=== PATIENT | male | born 1995 | race Caucasian/White ===

== ENCOUNTER 2019-09-27 14:59 | Outpatient (CLI) | payer BC, MEDICAID, SELFPAY ==
--- NOTE | ~2019-09-27 | XR_ITS ---
XR abdomen/kub 1V 09/27/2019 10:16 Indication: Gross hematuria Procedure: KUB Comparison: Comparison to multiple prior studies sequentially, with oldest reviewed study dated 01/25. Findings: Bowel gas pattern is nonobstructive. Moderate colonic fecal loading. Fecal material and bow el content Limited evaluation for renal/ureteral stones. There is scoliosis with spinal rods obscurin g the mid abdomen. Impression: 1: No acute abdominal abnormality. No definite nephrolithiasis. Reviewed, dictated and finalized at location A. Impression: 1: No acute abdominal abnormality. No definite nephrolithiasis.
== END 2019-09-27 15:00 | disposition home or self-care (01) ==
PROVIDERS: Visit Provider Nurse Practitioner Adult Health
DX: R31.0 Gross hematuria (principal)
CPT/HCPCS: 74018

== ENCOUNTER 2020-01-10 09:24 | Outpatient (CLI) | payer BC, MEDICAID, SELFPAY ==
--- NOTE | ~2020-01-10 | XR_ITS ---
XR abdomen/kub 1V DATE: 01/10/2020 09:39 INDICATION: Abdominal acute pain. History of kidney stones. TECHNIQUE: 2 AP views COMPARISON: 09/27/2019 KUB 01/10/2020 CT abdomen pelvis FINDINGS: There is a prominent of fecal material in the rectosigmoid area. No bowel obstruction is ev ident. Prostate calcifications are noted. No urinary bladder calcifications are noted. Upper and lower pole left renal calcified calculi. Pinpoint right renal calculus noted on the current CT abdomen pelvis examination is not definitively demonstrated radiographically. Diffuse osteopenia. There is prominent scoliosis, with bilateral pedicle screws and rods. One left adair mbar screw and the right iliac screw are no longer connected to the respective rods, unchanged since 09/27/2019. IMPRESSION: Bilateral nonobstructive nephrolithiasis Reviewed, dictated and finalized at Location A. Reviewed, dictated and finalized at location A.
--- NOTE | ~2020-01-10 | CT_ITS ---
EXAMINATION: CT abdomen pelvis wo con DATE: 01/10/2020 10:45 INDICATION: Acute abdominal pain TECHNIQUE: Computed tomography (CT) of the abdomen and pelvis was performed without intravenous contr ast. Automated exposure control and iterative reconstruction technique were employed. Exam dose: 534 .47 mGy-cm total exam DLP. COMPARISON: 05/19/2019 CT abdomen pelvis FINDINGS: The examination is quite limited due to extensive artifact from pedicle screws and rods in the thoracic and lumbar spine and sacrum and iliac bones. There is discoid scarring of the middle lobe. There is a pinpoint nonobstructing right renal calculus and approximately 4 mm and up to 7.8 mm nonob structing left renal calculi. No hydronephrosis of either kidney is evident. No obvious hepatic, sple jennifer, pancreatic or renal mass lesion is noted on this extremely limited noncontrast examination, but the streak artifact could easily obscure a significant abnormal mass in any of these structures. The gallbladder is present. No bile duct or pancreatic duct dilatation is evident. No hydronephrosis is evident. No obvious abdominal aortic aneurysm. No obvious adenopathy. There is a defect in the layer of hyperdensity in the urinary bladder suggesting blood or possibly sm all stones. There is moderate bladder wall thickening which may be secondary to any combination of ne uropathic cause, prostate enlargement and/or cystitis. No pericystic fat stranding is evident. There is fecal excrement between the buttocks, consistent with apparent fecal incontinence. No bowel obstruction or intraperitoneal free air is detected. IMPRESSION: Very limited examination due to extensive streak artifact from hardware of the thoracic and lumbar spine. Hyperdense dependent material in the urinary bladder consistent with hemorrhage or stones Bilateral nonobstructive nephrolithiasis Reviewed, dictated and finalized at Location A. Reviewed, dictated and finalized at location A. IMPRESSION: Very limited examination due to extensive streak artifact from ce dware of the thoracic and lumbar spine. Hyperdense dependent material in the urinary bladder consistent with hemorrhage or stones Bilateral nonobstructive nephrolithiasis
== END 2020-01-10 09:25 | disposition home or self-care (01) ==
PROVIDERS: Visit Provider Urology
DX: R10.9 Unspecified abdominal pain (principal); N20.0 Calculus of kidney
CPT/HCPCS: 74018; 74176

== ENCOUNTER 2020-01-28 10:34 | Outpatient (CLI) | payer BC, MEDICAID, SELFPAY ==
[2020-01-28 11:22] LABS: Prothrombin Time 12.7 Seconds (11.1-14.7)
[2020-01-28 11:23] LABS: Partial Thromboplastin Time 29.7 SECONDS (22.3-36.8)
[2020-01-28 12:00] LABS: Valproic Acid 89.1 ug/mL (50-120)
== END 2020-01-28 10:35 | disposition home or self-care (01) ==
PROVIDERS: Anesthesiology; Visit Provider Urology
DX: N20.1 Calculus of ureter (principal)
CPT/HCPCS: 36415; 80164; 85610; 85730; 87086; 87088

== ENCOUNTER 2020-02-04 01:29 | Outpatient (CLI) | payer BC, MEDICAID, SELFPAY ==
[2020-02-04 19:20] LABS: SARS-CoV-2 RNA PCR Negative
== END 2020-02-04 01:30 | disposition home or self-care (01) ==
LOC: ANHCOVIDDT 01:29
PROVIDERS: Visit Provider Urology
DX: Z01.812 Encounter for preprocedural laboratory examination (principal); Z20.828 Contact with and (suspected) exposure to other viral communicable diseases
CPT/HCPCS: 87635; C9803; U0003

== ENCOUNTER 2020-02-06 01:11 | Day surgery (SDC) | payer BC, MEDICAID, SELFPAY ==
[2020-01-26 11:42] VITALS: BMI 19.5
--- NOTE | ~2020-02-06 | XR_ITS ---
EXAMINATION: XR abdomen/kub 1V INDICATION: Left-sided ureteral stones TECHNIQUE: Supine view the abdomen is obtained COMPARISON: 01/10/2020 FINDINGS: Bowel contents project over the kidneys limiting sensitivity for renal stones. No definite urinary tract calculi are identified. There is a phlebolith of the right pelvis. Prostatic calcificat ions are noted. The bowel gas pattern is normal. There our changes of fusion from the thorax of the s acrum with separation of the right sacral screw from the spinous portion of the hardware. IMPRESSION: 1. No definite urolithiasis identified. Reviewed, dictated and finalized at location B.
[2020-02-06 06:40] VITALS: BP 153/83; PULSE 89; RESP 16; TEMP 36.9; O2SAT 98
--- NOTE | 2020-02-06 07:05 | WPDHPUPDATE1 ---
History and Physical Update Update Date/Time: 02/06/20 07:05 History and Physical has been reviewed, including an updated exam of the patient. There are NO changes in the patient's condition. Risks, benefits, and alternatives have been discussed and questions answered. Patient agrees to proceed with procedure.
--- NOTE | 2020-02-06 07:18 | P.PNAN_ITS ---
Anes - Initial Pre Proc Eval Procedure: Operation Date: 02/06/20 08:30 Proposed Procedures p Left Ureteral Extracorporeal Shock Wave Lithotripsy - Kamran Araujo MD s Flexible Cystoscopy - Kamran Araujo MD Date/Time: 02/06/20 07:18 Surgeon: Kamran Araujo MD Pre Op Diagnosis: Left Ureteral Stone Patient Data Age: 24 Gender: M Height: 5 ft Weight: 45.36 kg Allergies Allergy/AdvReac Type Severity Reaction Status Date / Time No Known Allergies Allergy Verified 02/06/20 07:19 Home Medications Medication Instructions Recorded Confirmed Type baclofen 20 mg PO TID 01/26/20 01/26/20 History sulfamethoxazole-trimethoprim 1 ml PO BID 01/26/20 01/26/20 History [Sulfatrim] valproic acid (as sodium salt) 125 mg PO DAILY 01/26/20 01/26/20 History valproic acid (as sodium salt) 250 mg PO HS 01/26/20 01/26/20 History Patient hx anesthesia problems: none Family hx anesthesia problems: none FOR[facility], [facility] Past Medical History Medical History (Updated 02/06/20 @ 07:19 by Kyaw Fuller MD) Cerebral palsy Social History Social History Smoking status: Never smoker Spiritual care concerns: No Anes - Eval Final PreProcedure Day of Procedure 02/06/20 07:18 Patient weight: normal Heart: regular rate and rhythm Lungs: clear to auscultation Neurological: other (severe mental impairment) Last oral intake: 2 hours (clears) ASA classification: III Emergent: no Anesthetic plan: proceed Anesthesia type and monitoring: general LMA and standard monitoring Informed Consent: The patient's anesthetic plan and its attendant risks and benefits were discussed with the patient and mother. Questions were solicited and answers provided to the satisfaction of the patient and mother.
[2020-02-06] MEDS: ceFAZolin 2 GM/D5W 50 ML 2 GM/50 ML BAG IVPB (08:34)
[2020-02-06] MEDS: LACTATED RINGERS 1,000 ML 30 ML IV CONT (08:50)
--- NOTE | 2020-02-06 09:16 | PM.PROC ---
Procedure Note - Detailed Date of procedure: 02/06/20 Pre-op diagnosis: Left Ureteral Stone Post-op diagnosis: same Procedure performed: 1. Flexible cystoscopy 2. Left renal ESWL Description of procedure: The patient was brought to the operative suite where he was placed in the supine position on the Dornier lithotripsy table. Cystoscopy is undertaken with a 16 F flexible cystoscope. Has no urethral strictures and no enlargement of the prostate. Bladder mucosa without hyperemia. There is no intravesical foreign body or neoplasm. The focal point of the lithotripter was placed at a 5-6mm left lower pole calculus. A total of 2500 shocks were delivered at a power setting of 4. Limited exhaustive attempt to identify the smaller upper pole left renal calculus without success. There appeared to be good fragmentation of the stone. The patient tolerated the procedure well and was taken to the recovery room in good condition. Anesthesia: GLMA Surgeon: Kamran Araujo MD Estimated blood loss (mL): 0 Drains: No Packing: No Pathology: none sent Complications: No immediate complications Condition: stable Disposition: PACU
[2020-02-06 09:24] VITALS: BP 176/103; PULSE 122; RESP 20; TEMP 36.1; O2SAT 98
--- NOTE | 2020-02-06 09:39 | SUR.PHASEI ---
[id number] pt with cerebral palsy,unable to continue vs with agitation. pt pulled pulled out iv and drsg applied. stretcher with padded siderails. [id number] mother at side for comfort. dr wilde here and talked to mother.
[2020-02-06 09:43] VITALS: PULSE 105; RESP 18; O2SAT 99
[2020-02-06 09:50] VITALS: PULSE 104; RESP 22; O2SAT 99
--- NOTE | 2020-02-06 09:51 | SUR.PHASEII ---
0951 remains in room 17,mother at side for comfort,remains agitated with monitors on. padded siderails to stretcher. respirations easy.
[2020-02-06 10:20] VITALS: RESP 20; O2SAT 99
== END 2020-02-06 10:21 | disposition home or self-care (01) ==
PROVIDERS: Visit Provider Urology
PROC: (CPT 50590; principal; 2020-02-06 08:30)
PROC: 0TJB8ZZ Inspection of Bladder, Via Natural or Artificial Opening Endoscopic (ICD-10-PCS; CPT 52000; 2020-02-06 08:30)
DX: N20.1 Calculus of ureter (principal); G80.9 Cerebral palsy, unspecified
CPT/HCPCS: 50590; 74018; A9270; J0690; J1100; J2250; J2405; J3010; J7030; J7120

== ENCOUNTER 2020-02-24 11:35 | Outpatient (CLI) | payer BC, MEDICAID, SELFPAY ==
--- NOTE | ~2020-02-24 | XR_ITS ---
XR abdomen/kub 1V DATE: 02/24/2020 11:55 INDICATION: Acute abdominal pain. Recent lithotripsy. TECHNIQUE: AP projection COMPARISON: 02/06/2020 KUB FINDINGS: There is a prominent amount of fecal material in the rectum and colon. No bowel obstruction is evident. Probable left calcified pelvic phlebolith. Spinal rods and pedicle screws extend from the thoracic spine to the sacrum; prominent dextroscoliosi s of the thoracolumbar spine. Diffuse osteopenia. Deformity of both hips. IMPRESSION: No significant change since 02/06/2020 Reviewed, dictated and finalized at Location [facility]. Reviewed, dictated and finalized at location B.
== END 2020-02-24 11:36 | disposition home or self-care (01) ==
PROVIDERS: Visit Provider Urology
DX: R10.9 Unspecified abdominal pain (principal)
CPT/HCPCS: 74018

== ENCOUNTER 2020-04-02 13:27 | Outpatient (CLI) | payer BC, MEDICAID, SELFPAY ==
--- NOTE | ~2020-04-02 | CT_ITS ---
EXAMINATION: CT abdomen pelvis wo con DATE: 04/02/2020 13:46 INDICATION: Bilateral kidney stones. TECHNIQUE: Computed tomography (CT) of the abdomen and pelvis was performed without intravenous contr ast. Automated exposure control and iterative reconstruction technique were employed. The dose-length product was 243.24 mGy-cm. COMPARISON: CT abdomen and pelvis 01/10/2020 FINDINGS: The visualized portions of the lung bases demonstrate mild atelectasis. No pleural effusion . The heart size is normal. No pericardial effusion. The liver, gallbladder, spleen, and pancreas are normal. The adrenal glands are obscured by metal artifact. There is a 1 mm stone in right kidney. Th ere is a 5 mm stone in left kidney. There is cortical thinning of left kidney. There is a small volum e of hematoma in the bladder. There is a 5 mm stone in the bladder. The stomach is distended. There a re no dilated loops of bowel. The appendix is normal. There are no pathologically enlarged lymph node s. There is no free intraperitoneal fluid. There is dextroscoliosis of thoracolumbar spine. There are changes of posterior fusion procedure from thoracic spine to the sacrum and iliac bones. There is st ar artifact from the instrumentation. IMPRESSION: 1. Stones in the kidneys and bladder. Sensitivity is decreased by artifact from the spinal instrument ation. 2. Small volume of hematoma in the bladder. Reviewed, dictated and finalized at location A. DEVELOPER IMPRESSION: 1. Stones in the kidneys and bladder. Sensitivity is decreased by artifact from the spinal instrumentation. 2. Small volume of hematoma in the bladder.
== END 2020-04-02 13:28 | disposition home or self-care (01) ==
PROVIDERS: Visit Provider Urology
DX: N20.0 Calculus of kidney (principal)
CPT/HCPCS: 74176

== ENCOUNTER 2020-04-13 10:36 | Outpatient (CLI) | payer BC, MEDICAID, SELFPAY ==
--- NOTE | ~2020-04-13 | US_ITS ---
EXAMINATION: US renal BI EXAM DATE: 04/13/2020 11:18 INDICATION: Bilateral kidney stones. TECHNIQUE: Multiple grayscale and Doppler images of the kidneys were obtained (by a technologist who performed the scan) and subsequently reviewed. There is no prior study for comparison. FINDINGS: Right kidney: There is normal contour and echogenicity. It measures 8.0 x 3.6 x 3.9 centimeters. Th ere are no focal renal lesions identified. There is no hydronephrosis. Left kidney: There is normal contour and echogenicity. It measures 9.7 x 3.8 x 4.7 centimeters. The re are no focal renal lesions identified. There is no hydronephrosis. Bladder not well visualized. IMPRESSION: 1. Mild bilateral renal atrophy. Reviewed, dictated and finalized at location A. [facility]
== END 2020-04-13 10:37 | disposition home or self-care (01) ==
LOC: ANHIMG 10:41
PROVIDERS: Visit Provider Urology
DX: N20.0 Calculus of kidney (principal); N26.1 Atrophy of kidney (terminal)
CPT/HCPCS: 76775

== ENCOUNTER 2020-08-27 10:10 | Outpatient (CLI) | payer BC, MEDICAID, SELFPAY ==
--- NOTE | ~2020-08-27 | XR_ITS ---
EXAMINATION: XR abdomen/kub 1V EXAM DATE: 08/27/2020 10:31 INDICATION: Bilateral kidney stones. TECHNIQUE: Frontal projection(s) of the abdomen for interpretation. Comparison is made to prior exami nation from 02/24/2020. FINDINGS: There is large amount of bowel and stomach gas overlying the renal contours. Possible left nephrolithiasis identified, indicated. Moderate to severe lower lumbar dextroscoliosis and Zelaya rods no obstruction. Hip dysplasia. IMPRESSION: 1. Possible left nephrolithiasis identified. Reviewed, dictated and finalized at location A.
== END 2020-08-27 10:11 | disposition home or self-care (01) ==
LOC: ANHIMG 10:14
PROVIDERS: Visit Provider Urology
DX: N20.0 Calculus of kidney (principal)
CPT/HCPCS: 74018

== ENCOUNTER 2020-09-13 10:13 | Outpatient (CLI) | payer BC, MEDICAID, SELFPAY ==
--- NOTE | ~2020-09-13 | US_ITS ---
EXAMINATION: US renal BI DATE: 09/13/2020 10:48 INDICATION: Abdominal pain TECHNIQUE: Multiple ultrasound grayscale images of the kidneys were obtained. COMPARISON: 04/13/2020 FINDINGS: The right kidney measures 10.3 x 4.0 x 4.8 cm. The left kidney is suboptimally visualized measuring a pproximately 8.5 x 4.0 x 5.7 cm. The kidneys demonstrate normal echogenicity. There is no hydronephro sis in either kidney. No stones identified. The bladder is nonvisualized and likely decompressed. IMPRESSION: 1. Normal kidneys without hydronephrosis. Reviewed, dictated and finalized at location A.
== END 2020-09-13 10:14 | disposition home or self-care (01) ==
LOC: ANHIMG 10:20
PROVIDERS: PCP Family Medicine; Visit Provider Urology
DX: R10.9 Unspecified abdominal pain (principal)
CPT/HCPCS: 76775

== ENCOUNTER 2023-06-15 14:36 | Outpatient (CLI) | payer BC, MEDICAID, SELFPAY ==
--- NOTE | ~2023-06-15 | XR_ITS ---
XR abdomen/kub 1V DATE: 06/15/2023 17:07 INDICATION: Left ureteral stone TECHNIQUE: 2 AP views COMPARISON: August 27, 2020 KUB FINDINGS: Extensive thoracic and lumbar and sacral iliac orthopedic hardware is again noted. Prominent gaseous distention of the stomach. No bowel obstruction is noted. Stable calcifications overlying the base of the left pelvis.. No renal calcified calculi are identifi ed. Possible calcified stone overlying left kidney suggested on August 27, 2020 KUB is not evident on t he current examination. No new calcifications are evident. IMPRESSION: Nonspecific abdomen Reviewed, dictated and finalized at Location A. Reviewed, dictated and finalized at location A. CH GRINDER IMPRESSION: Nonspecific abdomen
== END 2023-06-15 14:37 | disposition home or self-care (01) ==
PROVIDERS: PCP Family Medicine; Visit Provider Urology
DX: N20.1 Calculus of ureter (principal)
CPT/HCPCS: 74018